=== PATIENT | female | born 1975 | race African-American/Black ===

== ENCOUNTER 2018-12-29 04:29 | Emergency (ER) | payer SELFPAY ==
[2018-12-29] MEDS ORDERED: HALOPERIDOL LACT 5 MG/ML INJ ONE (05:26)
[2018-12-29] MEDS ORDERED: DIPHENHYDRAMINE 50 MG/ML VIAL ONE (05:27)
--- NOTE | 2018-12-29 06:16 | ER ---
Nurse's Notes [facility] Name: Kenia Ruiz Age: 43 yrs Sex: Female : 1975 Arrival Date: 12/29/2018 Time: 04:31 Bed 5 Private MD: Morales Mairano R Diagnosis: Insomnia, unspecified Presentation: 12/29 04:41 Presenting complaint: Patient states: Pt reports she has been unable to sleep since she ea took Adderall about four days ago. Reports her body feels restless. Transition of care: patient was not received from another setting of care. Onset of symptoms was December 29, 2018. Risk Assessment: Do you want to hurt yourself or someone else? Patient reports no desire to harm self or others. Initial Sepsis Screen: Does the patient meet any 2 criteria? No. Patient's initial sepsis screen is negative. Does the patient have a suspected source of infection? No. Patient's initial sepsis screen is negative. Care prior to arrival: "sleep aide". 04:41 Method Of Arrival: Ambulatory ea 04:41 Acuity: CHETAN 3 ea Triage Assessment: 04:50 General: Appears in no apparent distress. Behavior is restless. Pain: Denies pain. ea Neuro: Level of Consciousness is awake, alert, obeys commands, Oriented to person, place, time, situation. Cardiovascular: Patient's skin is warm and dry. Respiratory: Airway is patent Respiratory effort is even, unlabored, Respiratory pattern is regular, symmetrical. Derm: Skin is dry, Skin is normal, Skin temperature is warm. Musculoskeletal: Circulation, motion, and sensation intact. 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 - Social history:: Smoking status: Patient/guardian denies using tobacco. - Ebola Screening: : No symptoms or risks identified at this time. - Family history:: not pertinent. - Hospitalizations: : No recent hospitalization is reported. Screenin:49 Abuse screen: Denies threats or abuse. Nutritional screening: No deficits noted. ea Tuberculosis screening: No symptoms or risk factors identified. Fall Risk None identified. Assessment: 04:50 Reassessment: see triage assessment. ea 05:30 Reassessment: Patient and/or family updated on plan of care and expected duration. Pain ea level reassessed. Patient is alert, oriented x 3, equal unlabored respirations, skin warm/dry/pink. 06:29 Reassessment: Patient appears in no apparent distress at this time. Patient and/or jd3 family updated on plan of care and expected duration. Pain level reassessed. Patient is alert, oriented x 3, equal unlabored respirations, skin warm/dry/pink. Patient states feeling better. Vital Signs: 04:44 BP 125 / 70; Pulse 87; Resp 18; Temp 97.8; Pulse Ox 98% on R/A; Weight 95.25 kg; Height ea 5 ft. 7 in. (170.18 cm); 06:19 BP 119 / 80; Pulse 78; Resp 18; Pulse Ox 100% ; ea 04:44 Body Mass Index 32.89 (95.25 kg, 170.18 cm) ea ED Course: 04:31 Patient arrived in ED. am2 04:32 Morales Mariano MD is Private Physician. am2 04:44 Triage completed. ea 04:46 Patient has correct armband on for positive identification. Bed in low position. ea 04:46 Arm band placed on right wrist. Patient placed in an exam room, on a stretcher, on ea pulse oximetry. 05:13 Dick Chau MD is Attending Physician. rn 06:20 No provider procedures requiring assistance completed. Patient did not have IV access ea during this emergency room visit. Administered Medications: 05:30 Drug: HALdol (as decanoate) 5 mg Route: IM; Site: left deltoid; ea 06:20 Follow up: Response: No adverse reaction ea 05:30 Drug: Benadryl 50 mg Route: IM; Site: right deltoid; ea 06:20 Follow up: Response: No adverse reaction ea Outcome: 06:15 Discharge ordered by . rn 06:30 Discharged to home via wheelchair, with family. jd3 06:30 Condition: stable 06:30 Discharge instructions given to patient, family, Instructed on discharge instructions, follow up and referral plans. medication usage, Demonstrated understanding of instructions, follow-up care, medications, Prescriptions given X 1. 06:30 Patient left the ED. jd3 Signatures: Dick Chau MD MD rn Moreno, Amanda am2 Antunez, Elena, RN RN ea Davies, Jonathon, RN RN jd3
--- NOTE | 2018-12-29 06:17 | EDPHYS ---
Physician Documentation [facility] Name: Kenia Ruiz Age: 43 yrs Sex: Female : 1975 Arrival Date: 12/29/2018 Time: 04:31 Bed 5 Private MD: Morales Mariano R ED Physician Dick Chau HPI: 12/29 06:09 This 43 yrs old Black Female presents to ER via Ambulatory with complaints of cant rn sleep. 06:09 Reports 4 days of not sleeping, feels restless, reports took adderall 4 days ago, rn denies other drug use. NO fever/cough/sob/abd pain. Denies . . Onset: The symptoms/episode began/occurred 4 day(s) ago. Severity of symptoms: At their worst the symptoms were moderate in the emergency department the symptoms are unchanged. The patient has not experienced similar symptoms in the past. The patient has not recently seen a physician. 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 - Social history:: Smoking status: Patient/guardian denies using tobacco. - Ebola Screening: : No symptoms or risks identified at this time. - Family history:: not pertinent. - Hospitalizations: : No recent hospitalization is reported. ROS: 06:09 Constitutional: Negative for fever, chills, and weight loss, Eyes: Negative for injury, rn pain, redness, and discharge, Neck: Negative for injury, pain, and swelling, Cardiovascular: Negative for chest pain, palpitations, and edema, Respiratory: Negative for shortness of breath, cough, wheezing, and pleuritic chest pain, Abdomen/GI: Negative for abdominal pain, nausea, vomiting, diarrhea, and constipation, MS/Extremity: Negative for injury and deformity, Skin: Negative for injury, rash, and discoloration, Neuro: Negative for headache, weakness, numbness, tingling, and seizure. Exam: 06:09 Constitutional: This is a well developed, well nourished patient who is awake, alert, rn and in no acute distress. Head/Face: Normocephalic, atraumatic. Eyes: No nystagmus ENT: MMM Cardiovascular: Regular rate and rhythm. No pulse deficits. Respiratory: No increased work of breathing, no retractions or nasal flaring. Skin: Warm, dry MS/ Extremity: Pulses equal, no cyanosis. Neurovascular intact. Full, normal range of motion. Equal circumference. Neuro: Awake and alert, GCS 15, oriented to person, place, time, and situation. Cranial nerves II-XII grossly intact. Motor strength 5/5 in all extremities. Sensory grossly intact. Cerebellar exam normal. Normal gait. Vital Signs: 04:44 BP 125 / 70; Pulse 87; Resp 18; Temp 97.8; Pulse Ox 98% on R/A; Weight 95.25 kg; Height ea 5 ft. 7 in. (170.18 cm); 06:19 BP 119 / 80; Pulse 78; Resp 18; Pulse Ox 100% ; ea 04:44 Body Mass Index 32.89 (95.25 kg, 170.18 cm) ea MDM: 05:13 Patient medically screened. rn 06:09 Differential Diagnosis insomnia, anxiety, restlessness. Data reviewed: vital signs, rn nurses notes, and as a result, I will discharge patient. Counseling: I had a detailed discussion with the patient and/or guardian regarding: the historical points, exam findings, and any diagnostic results supporting the discharge/admit diagnosis, the need for outpatient follow up, to return to the emergency department if symptoms worsen or persist or if there are any questions or concerns that arise at home. Special discussion: I discussed with the patient/guardian in detail that at this point there is no indication for admission to the hospital. It is understood, however, that if the symptoms persist or worsen the patient needs to return immediately for re-evaluation. Administered Medications: 05:30 Drug: HALdol (as decanoate) 5 mg Route: IM; Site: left deltoid; ea 06:20 Follow up: Response: No adverse reaction ea 05:30 Drug: Benadryl 50 mg Route: IM; Site: right deltoid; ea 06:20 Follow up: Response: No adverse reaction ea Disposition: 12/29/18 06:15 Discharged to Home. Impression: Insomnia, unspecified. - Condition is Stable. - Discharge Instructions: Insomnia. - Prescriptions for Ambien 10 mg Oral Tablet - take 1 tablet by ORAL route At bedtime As needed; 5 tablet. - Medication Reconciliation Form, Thank You Letter, Antibiotic Education, Prescription Opioid Use form. - Follow up: Private Physician; When: As needed; Reason: Recheck today's complaints, Re-evaluation by your physician. - Problem is new. - Symptoms have improved. Signatures: Dick Chau MD MD rn Antunez, Elena, RN RN ea Davies, Jonathon, RN RN jd3 Corrections: (The following items were deleted from the chart) 06:30 06:15 12/29/2018 06:15 Discharged to Home. Impression: Insomnia, unspecified. Condition jd3 is Stable. Forms are Medication Reconciliation Form, Thank You Letter, Antibiotic Education, Prescription Opioid Use. Follow up: Private Physician; When: As needed; Reason: Recheck today's complaints, Re-evaluation by your physician. Problem is new. Symptoms have improved. rn
== END 2018-12-29 06:30 | disposition home or self-care (01) ==
LOC: ER 04:29
DX: G47.00 Insomnia, unspecified (principal)
CPT/HCPCS: 96372; 99283; J1630